=== PATIENT | male | born 1955 | race Caucasian/White ===

== ENCOUNTER → 2023-05-24 15:06 | Outpatient (REF) | payer MEDICARE, SELFPAY | LOC: RAD 15:06 | PROVIDERS: ATTENDING PHYSICIAN Otolaryngology; FAMILY PHYSICIAN Nurse Practitioner | DX: J33.9 Nasal polyp, unspecified (principal); J32.9 Chronic sinusitis, unspecified; Z01.810 Encounter for preprocedural cardiovascular examination | CPT/HCPCS: 70486; 93005 ==

== ENCOUNTER → 2023-06-23 14:08 | Outpatient (REF) | payer MEDICARE, SELFPAY | LOC: CLAB 14:08 | PROVIDERS: ATTENDING PHYSICIAN Otolaryngology | DX: J33.9 Nasal polyp, unspecified (principal); J34.2 Deviated nasal septum; J34.3 Hypertrophy of nasal turbinates | CPT/HCPCS: 88304; 88311 ==